=== PATIENT | male | born 2000 | race African-American/Black ===

== ENCOUNTER 2020-12-01 21:54 | Emergency (ER) | payer OTHER ==
[2020-12-01 22:02] VITALS: BP 127/89; TEMP 98.9; BMI 24.4
[2020-12-01] MEDS ORDERED: predniSONE 20 MG TABLET (UD) PO ONE (23:05)
[2020-12-01] MEDS ORDERED: predniSONE 20 MG TABLET (UD) ONE (23:09)
[2020-12-01] MEDS: ALBUTEROL SO4 2.5/IPRATROPIUM 0.5 INH SOL 3 ML VIAL.NEB. NEB SCH ×3 (23:17→23:50)
[2020-12-02] MEDS: ALBUTEROL SO4 2.5/IPRATROPIUM 0.5 INH SOL 3 ML VIAL.NEB. NEB SCH (00:09)
[2020-12-02 00:22] VITALS: PULSE 91
== END 2020-12-02 00:24 | disposition home or self-care (01) ==
LOC: JER 21:54
PROC: 3E0F7GC Introduction of Other Therapeutic Substance into Respiratory Tract, Via Natural or Artificial Opening (ICD-10-PCS; principal; 2020-12-01)
DX: J45.41 Moderate persistent asthma with (acute) exacerbation (principal)
CPT/HCPCS: 71046-TC-FY; 99284-25; C9803; U0003; U0005

== ENCOUNTER 2020-12-02 13:09 | Emergency (ER) | payer OTHER ==
[2020-12-02 13:19] VITALS: BP 138/90; PULSE 71; TEMP 98.1; BMI 24.4
[2020-12-02] MEDS ORDERED: SILVER SULFADIAZINE 1% TOP CREAM 50 GM JAR TP ONE ×2 (13:54→14:05)
[2020-12-02] MEDS ORDERED: DIPHTH,PERTUSS(ACELL),TET 0.5 ML DISP.SYRIN IM ONE ×2 (14:11→14:18)
== END 2020-12-02 14:37 | disposition home or self-care (01) ==
LOC: JERFT 13:09
PROC: 3E0234Z Introduction of Serum, Toxoid and Vaccine into Muscle, Percutaneous Approach (ICD-10-PCS; principal; 2020-12-02)
DX: T25.221A Burn of second degree of right foot, initial encounter (principal); T25.121A Burn of first degree of right foot, initial encounter; Y27.2XXA Contact with hot fluids, undetermined intent, initial encounter
CPT/HCPCS: 99284-25

== ENCOUNTER 2020-12-25 09:19 | Emergency (ER) | payer OTHER ==
[2020-12-25 09:24] VITALS: TEMP 98.8; BMI 24.4
[2020-12-25] MEDS ORDERED: ALBUTEROL SO4 2.5/IPRATROPIUM 0.5 INH SOL 3 ML VIAL.NEB. NEB ONE (09:27)
[2020-12-25] MEDS ORDERED: methylPREDNISolone NA SUCC 125 MG/2 ML VIAL IVPUSH ONE (09:42)
[2020-12-25] MEDS: ALBUTEROL SO4 2.5/IPRATROPIUM 0.5 INH SOL 3 ML VIAL.NEB. NEB SCH ×3 (09:49→10:55)
[2020-12-25] MEDS ORDERED: methylPREDNISolone NA SUCC 125 MG/2 ML VIAL ONE (09:52)
[2020-12-25] MEDS ORDERED: MAGNESIUM SULF 50% (8.12 MEQ/2 ML-1 GM VIAL) IVPB ONE (11:52)
[2020-12-25] MEDS ORDERED: MAGNESIUM SULFATE IN WATER 2 GM/50 ML IVPB IVPB ONE (12:13)
[2020-12-25] MEDS ORDERED: ALBUTEROL SO4 0.083% IH SOL 2.5 MG/3 ML VIAL.NEB. NEB ONE (12:13)
[2020-12-25] MEDS: ALBUTEROL SO4 0.083% IH SOL 2.5 MG/3 ML VIAL.NEB. NEB SCH ×2 (12:18→13:43)
[2020-12-25] MEDS ORDERED: ALBUTEROL SO4 0.083% IH SOL 2.5 MG/3 ML VIAL.NEB. NEB PRN (13:21)
[2020-12-25 15:06] VITALS: BP 128/80; PULSE 90
== END 2020-12-25 15:06 | disposition home or self-care (01) ==
LOC: JER 09:19
PROC: 3E0F7GC Introduction of Other Therapeutic Substance into Respiratory Tract, Via Natural or Artificial Opening (ICD-10-PCS; principal; 2020-12-25)
PROC: 3E033GC Introduction of Other Therapeutic Substance into Peripheral Vein, Percutaneous Approach (ICD-10-PCS; 2020-12-25)
PROC: 3E033GC Introduction of Other Therapeutic Substance into Peripheral Vein, Percutaneous Approach (ICD-10-PCS; 2020-12-25)
DX: J45.901 Unspecified asthma with (acute) exacerbation (principal)
CPT/HCPCS: 71046-TC-FY; 99284-25; C9803; U0003; U0005

== ENCOUNTER 2022-02-17 09:59 | Emergency (ER) | payer OTHER ==
[2022-02-17 10:24] VITALS: BP 123/89; PULSE 68; RESP 20; TEMP 98; BMI 25.7
[2022-02-17] MEDS ORDERED: ALBUTEROL SO4 2.5/IPRATROPIUM 0.5 INH SOL 3 ML VIAL.NEB. NEB ONE ×2 (10:57→11:33)
== END 2022-02-17 12:09 | disposition home or self-care (01) ==
LOC: JERFT 09:59 → JER 09:59 → JERFT 12:09
PROC: 3E0F7GC Introduction of Other Therapeutic Substance into Respiratory Tract, Via Natural or Artificial Opening (ICD-10-PCS; principal; 2022-02-17)
DX: J45.21 Mild intermittent asthma with (acute) exacerbation (principal)
CPT/HCPCS: 71046-TC-FY; 99283-25